=== PATIENT | male | born 1945 | race Two or more races ===

== ENCOUNTER 2025-02-08 09:25 | Emergency (ER) | payer MEDICARE, OTHER ==
[~2025-02-08] VITALS: Ht 182.9 cm; Wt 80.7 kg
[2025-02-08 10:05] LABS: PLATELET COUNT (AUTO) 165 K/uL (150-450); RED BLOOD CELL COUNT(AUTO) 4.40 MIL/uL (4.5-6.0); RED CELL DISTRIBUTION WIDTH 14.5 % (11.5-15.0); WHITE BLOOD COUNT (AUTO) 6.1 K/uL (4.3-11.0)
[2025-02-08] MEDS ORDERED: ACETAMINOPHEN ES 500 MG TABLET ONE (10:09)
[2025-02-08 10:12] LABS: CALCIUM, SERUM 8.8 mg/dL (8.5-10.1); CREATININE 1.1 mg/dL (0.6-1.3); SODIUM SERUM 144.0 mmol/L (136-145); UREA NITROGEN, BLOOD 12.0 mg/dL (7-18)
[2025-02-08] MEDS: ACETAMINOPHEN ES 500 MG TABLET PO ONE (10:14)
[2025-02-08 10:24] LABS: INR 1.05 (0.91-1.10)
[2025-02-08] MEDS: IV NS 0.9% 500 ML BAG IV ONE (10:28)
[2025-02-08 12:35] VITALS: BP 136/74; TEMP 97.8; O2SAT 98
== END 2025-02-08 12:37 | disposition home or self-care (01) ==
LOC: ER 09:34
DX: R51.9 Headache, unspecified (principal); E78.5 Hyperlipidemia, unspecified; G40.909 Epilepsy, unspecified, not intractable, without status epilepticus; I10 Essential (primary) hypertension; F32.A Depression, unspecified; R06.02 Shortness of breath
CPT/HCPCS: 36415; 70450-TC; 80048-TC; 80185-TC; 85025-TC; 85730-TC